=== PATIENT | female | born 1975 ===

== ENCOUNTER 2018-12-23 08:30 | Inpatient (IN) | payer OTHER ==
[~2018-12-23] VITALS: Ht 152.4 cm; Wt 59.0 kg
== END 2018-12-29 11:50 | disposition home or self-care (01) | DRG 745 ==
LOC: O/R 08:30 → OB/GYN 12-28 05:15 → O/R 12-28 05:15 → OB/GYN 12-28 10:03
PROVIDERS: ADMIT Obstetrics & Gynecology
PROC: 0UB70ZZ Excision of Bilateral Fallopian Tubes, Open Approach (ICD-10-PCS; principal; 2018-12-28 07:00)
DX: N83.292 Other ovarian cyst, left side (principal); N83.291 Other ovarian cyst, right side; N70.11 Chronic salpingitis